=== PATIENT | female | born 1985 | race Caucasian/White ===

== ENCOUNTER 2018-04-24 06:10 | Inpatient (IN) | payer OTHER ==
[2018-04-24 06:28] VITALS: BMI 24.5
[2018-04-24] MEDS ORDERED: Lactated Ringer's 1,000 ML IV SCH (07:00)
--- NOTE | 2018-04-24 08:34 | OBADHP ---
Datetime: 04/24/2018 08:27 Admit Comment, IP Provider: iup at term with rom clear fluid uneventful course admitted for delivery Pelvic Type - PN: Adequate Extremities - PN: Normal Abdomen - PN: Normal Back - PN: Normal Breast - PN: Normal Lungs - PN: Normal Heart - PN: Normal Thyroid - PN: Normal Neurologic - PN: Normal HEENT - PN: Normal General - PN: Normal Presentation-Admit: Vertex FHR - Baseline A Provider: 130 Amniotic Fluid Color, Provider: Clear Membranes, Provider: Ruptured Contraction Comments Provider: q5-6 Gestation - Est Wks by US: 40.0 Pool Provider: Positive Vital Signs Provider: Reviewed; Within Normal Limits IP Chief Complaint: Uterine contractions NICHD Variability Prov Fetus A: Moderate 6-25bpm NICHD Accel Fetus A IP Provider: 10X10 FHR Category Provider Fetus A: Category I NICHD Decel Fetus A IP Provider: None Dilatation, Provider: 3-4 Effacement, Provider: 80% Station, Provider: -2 Genitourinary Exam: Normal DTRs - PN: Normal EGA AdmitDate IP: 40.0 IP Adm Impression: Term, intrauterine ; Ruptured Membranes IP Admit Plan: Admit to unit; Initiate labor protocol
[2018-04-24] MEDS ORDERED: Oxytocin 30 units/LR 500ML 30 U/500 ML BAG IV ONE (08:36)
[2018-04-24 09:00] LABS: BASO % 0.3 % (0.0-2.0); EOS # 0.1 K/uL (0.0-0.7); HEMOGLOBIN 12.8 g/dL (12.0-16.0); LYMPH # 1.9 K/uL (1.0-4.3); LYMPH % 19.1 % (20.0-40.0); MEAN CELL VOLUME 90.5 fl (81.0-99.0); MEAN CORPUSCULAR HGB CONC 35.4 g/dL (33.0-37.0); MEAN PLATELET VOLUME 9.3 fl (7.2-11.7); MONO # 0.9 K/uL (0.0-0.8); MONO % 8.6 % (0.0-10.0); NEUT # 7.1 K/uL (1.8-7.0); NRBC % 0.1 % (0.0-0.0); RED CELL DISTRIBUTION WIDTH 14.1 % (11.5-14.5)
[2018-04-24] MEDS ORDERED: Oxycodone/Acetaminophen 5/325 mg Tab PO PRN ×4 (12:37→17:08)
[2018-04-24] MEDS ORDERED: Benzocaine/Menthol SPRAY TOP PRN (12:37)
[2018-04-24] MEDS ORDERED: Acetaminophen-Codeine 300/30 mg Tab PO PRN ×2 (12:37→17:08)
--- NOTE | 2018-04-24 12:38 | OBDS ---
DELIVERY PERSONNEL Nurse Logging Assistant Certified: patrick Delivery Doctor: Oniel Glover MD Scrub Nurse: patrick Plant Tour Guide: Kayce Collins RNC Anesthesiologist: Janessa Rosado MD Assembler [employer] Spider: patrick Resident: patrick MATERNAL INFORMATION Medications in Delivery: pitocin 30 u Estimated Blood Loss (ml): 200 Placenta Cultured: No Maternal Complications: None RN Comments: to alive baby girl 9/9 with complete delivery of placenta;uneventful deliver y Provider Comments: delivery of live baby girl 9/9 clear fluid cord with 3 vessels first degree laceration and repair LABOR SUMMARY EDC: 04/24/2018 00:00 No. Babies in Womb: 1 Attempted: No Labor Anesthesia: Epidural LABOR INFORMATION Reason for Induction: Not Applicable Onset of Labor: 04/24/2018 07:00 Complete Dilatation: 04/24/2018 11:20 Other Ripening Agents: na Oxytocin: Augmentation Group B Beta Strep: Negative Antibiotics # of Doses: 0 Antibiotics Time of Last Dose: 0 Steroids Given: None Reason Steroids Not Administered: Not Applicable MEMBRANES Membranes Rupture Method: Spontaneous Rupture of Membranes: 04/24/2018 04:20 Length of Rupture (hrs): 7.68 Amniotic Fluid Color: Clear Amniotic Fluid Amount: Large Amniotic Fluid Odor: Normal STAGES OF LABOR Stage 1 hrs: 4 Stage 1 min: 20 Stage 2 hrs: 0 Stage 2 min: 41 Stage 3 hrs: 0 Stage 3 min: 5 Total Time in Labor hrs: 5 Total Time in Labor min: 6 VAGINAL DELIVERY Episiotomy: None Laceration Extension: First Degree Laceration Type: Vaginal Other Laceration: periurethral Laceration Repair: Yes Laceration Repair Note: repair of first degree laceration with 2-0 chromic Initial Vag Sponge Count: 6 Final Vag Sponge Count: 6 Initial Vag Sharps Count: 1 Final Vag Sharps Count: 1 Sponge Count Correct: Yes Sharps Count Correct: Yes Count Comment: correct count BABY A INFORMATION Infant Delivery Date/Time: 04/24/2018 12:01 Method of Delivery: Vaginal Born in Route : No : N/A Forceps: N/A Vacuum Extraction: N/A Shoulder Dystocia : No SHOULDER DYSTOCIA BABY A Infant Delivery Date/Time: 04/24/2018 12:01 PRESENTATION/POSITION BABY A Presentation: Cephalic Cephalic Presentation: Vertex Vertex Position: Left Occipital Anterior Breech Presentation: N/A PLACENTA INFORMATION BABY A Placenta Delivery Time : 04/24/2018 12:06 Placenta Method of Delivery: Expressed Placenta Status: Delivered SCORES BABY A Heart Rate 1 min: >100 bpm Resp Effort 1 min: Good Cry Reflex Irritability 1 min: Cough or Sneeze or Pulls Away Muscle Tone 1 min: Active Motion Color 1 min: Body Somers, Extremities Blue SCORE 1 MIN: 9 Heart Rate 5 min: >100 bpm Resp Effort 5 min: Good Cry Reflex Irritability 5 min: Cough or Sneeze or Pulls Away Muscle Tone 5 min: Active Motion Color 5 min: Body Somers, Extremities Blue SCORE 5 MIN: 9 INFANT INFORMATION BABY A Gestational Age at Delivery: 40.2 Gestational Status: Term Outcome : Liveborn Condition : Stable Sex: Female IDENTIFICATION/MEDS BABY A ID Band Number: [id number] WEIGHT/LENGTH BABY A Infant Birthweight (gms): 3280 Infant Weight (lb): 7 Infant Weight (oz): 4 CORD INFORMATION BABY A No. Cord Vessels: 3 Nuchal Cord : N/A Nuchal Cord Other: na True Knot: na Cord pH Baby Arterial: na Cord pH Baby Venous: na Cord Blood Taken: Yes Banking/Donate Info: na Infant Suction: Mouth; Nose; Pharynx
[2018-04-24] MEDS: Benzocaine/Menthol SPRAY TOP PRN (19:07)
[2018-04-25 08:56] LABS: BASO % 0.3 % (0.0-2.0); EOS # 0.1 K/uL (0.0-0.7); EOS % 0.8 % (0.0-4.0); HEMOGLOBIN 13.3 g/dL (12.0-16.0); LYMPH # 1.5 K/uL (1.0-4.3); LYMPH % 12.5 % (20.0-40.0); MEAN CORPUSCULAR HEMOGLOBIN 31.4 pg (27.0-31.0); MEAN CORPUSCULAR HGB CONC 34.6 g/dL (33.0-37.0); MEAN PLATELET VOLUME 8.6 fl (7.2-11.7); MONO # 0.5 K/uL (0.0-0.8); MONO % 4.7 % (0.0-10.0); NEUT # 9.5 K/uL (1.8-7.0); NEUT % 81.7 % (50.0-75.0); NRBC % 0.1 % (0.0-0.0); RBC 4.22 Mil/uL (3.80-5.20); RED CELL DISTRIBUTION WIDTH 14.2 % (11.5-14.5); WHITE BLOOD COUNT 11.7 K/uL (4.8-10.8)
--- NOTE | 2018-04-26 09:34 | OBPPN ---
Datetime: 04/26/2018 09:32 PP Pain Prov: Within normal limits PP Nausea Prov: Denies PP Flatus Prov: Yes PP BM Prov: Yes PP Breasts Prov: Normal PP Heart Prov: Normal PP Lungs Prov: Normal PP Abdomen/Uterus Prov: Normal PP Lochia Prov: Normal PP Vulva/Perineum Prov: Normal PP CVA Tenderness Prov: Normal PP Extremities Prov: Normal PP Progress Prov: Normal PP Impression Prov: Normal progression PP Plan Prov: Continue present management PP Progress Note Prov: stable ppd2 continue present care IP PP Procedures: None Vital Signs Provider PP: Reviewed; Within Normal Limits
--- NOTE | 2018-04-26 09:38 | OBDCSUM ---
Datetime: 04/26/2018 09:34 Discharged to, Provider: Home Follow up at, Provider: Disch Instr Activity: Normal activity; Bedrest; May be up to bathroom; May be up for meals; May Show er Disch Instr Diet: Regular Discharge Instructions, Provider: Routine instructions given Discharge Diagnosis, Provider: Term Delivered Follow up in weeks, Provider: 5-6weeks in office Disch Referrals: None Disch Activity Restrictions: No exercising; No driving; No sexual activity; Nothing in vagina - Inte rcourse, tampons, douche Discharge Comment, Provider: [place] call office if any problems Contraception after Delivery: Undecided Datetime: 04/26/2018 09:20 Discharged to, Provider: Home Follow up at, Provider: Lianna CASTRO Disch Instr Activity: Normal activity Disch Instr Diet: Regular Follow up in weeks, Provider: 4-6 weeks
[2018-04-26] MEDS: Benzocaine/Menthol SPRAY TOP PRN (11:21)
[2018-04-26 18:03] VITALS: BP 122/62; PULSE 83; RESP 20; TEMP 98.5; O2SAT 100
== END 2018-04-26 13:40 | disposition home or self-care (01) | DRG 775 ==
LOC: H.EROB2 06:10 → H.L&D 06:51 → H.OB/GYN 15:52
PROVIDERS: ADMIT Specialist; ATTEND Specialist
PROC: 10E0XZZ Delivery of Products of Conception, External Approach (ICD-10-PCS; principal; 2018-04-24)
PROC: 0UQMXZZ Repair Vulva, External Approach (ICD-10-PCS; 2018-04-24)
PROC: 0HQ9XZZ Repair Perineum Skin, External Approach (ICD-10-PCS; 2018-04-24)
PROC: 4A1HXCZ Monitoring of Products of Conception, Cardiac Rate, External Approach (ICD-10-PCS; 2018-04-24)
PROC: 3E0234Z Introduction of Serum, Toxoid and Vaccine into Muscle, Percutaneous Approach (ICD-10-PCS; 2018-04-25)
DX: O48.0 Post-term pregnancy (principal); O36.0930 Maternal care for other rhesus isoimmunization, third trimester, not applicable or unspecified; O71.82 Other specified trauma to perineum and vulva; O70.0 First degree perineal laceration during delivery; Z3A.40 40 weeks gestation of pregnancy; Z37.0 Single live birth